=== PATIENT | male | born 1970 | race Two or more races ===

== ENCOUNTER 2022-12-03 11:29 | Emergency (ER) | payer OTHER ==
[~2022-12-03] VITALS: Ht 165.1 cm; Wt 70.3 kg
--- NOTE | 2022-12-03 11:40 | NUR ---
ON AND OFF CHEST PAIN RADIATING TO LEFT SHOULDER STARTING X6DAYS AGO. ASSISTED TO ER BED 10, EKG PERFORMED BY EMT. NOTIFIED. CARE CONTINUES
--- NOTE | 2022-12-03 11:55 | NUR ---
ESTABLISHED IV LINE 20 G RIGHT FOREARM
--- NOTE | 2022-12-03 11:55 | NUR ---
BLOOD SAMPLE OBTAIANED SENT TO LAB
[2022-12-03 12:32] LABS: BASOPHILS % (AUTO) 0.4 % (0.0-2.0); EOSINOPHILS % (AUTO) 1.7 % (0.0-6.0); HEMATOCRIT 50 % (39-51); HEMOGLOBIN 16.5 g/dL (13.5-17.5); LYMPHOCYTES # (AUTO) 3.4 K/uL (0.8-4.8); LYMPHOCYTES % (AUTO) 50.3 % (20.0-44.0); MEAN CORPUSCULAR HGB CONC 33 g/dl (31.0-36.0); MEAN CORPUSCULAR VOLUME 92 fL (80-96); MONOCYTES # (AUTO) 0.5 K/uL (0.1-1.30); MONOCYTES % (AUTO) 7.7 % (2.0-12.0); NEUTROPHILS # (AUTO) 2.7 K/uL (1.8-8.9); NEUTROPHILS % (AUTO) 39.9 % (43.0-81.0); PLATELET COUNT (AUTO) 266 K/uL (150-450); WHITE BLOOD COUNT (AUTO) 6.7 K/uL (4.3-11.0)
[2022-12-03 12:40] LABS: CALCIUM, SERUM 9.1 mg/dL (8.5-10.1); CARBON DIOXIDE 26 mmol/L (21-32); CHLORIDE 106 mmol/L (98-107); CREATININE 0.9 mg/dL (0.6-1.3); GLUCOSE 92 mg/dL (74-106); POTASSIUM 3.8 mmol/L (3.5-5.1); SODIUM SERUM 141 mmol/L (136-145); UREA NITROGEN, BLOOD 13 mg/dL (7-18)
[2022-12-03] MEDS ORDERED: IBUP-1953 PO (13:24)
[2022-12-03 13:46] VITALS: BP 117/89
== END 2022-12-03 13:47 | disposition home or self-care (01) ==
LOC: ER 11:35
DX: R07.89 Other chest pain (principal)
CPT/HCPCS: 36415; 71045-TC; 80048-TC; 84484-TC; 85025-TC

== ENCOUNTER 2023-04-18 09:41 | Emergency (ER) | payer OTHER ==
[~2023-04-18] VITALS: Ht 165.1 cm; Wt 70.8 kg
[~2023-04-18 09:41] MED LIST: IBUP-1953 PO
[2023-04-18] MEDS ORDERED: FLUORESCEIN SODIUM OPHTH 1 EA STRIP ONE (11:52)
[2023-04-18] MEDS ORDERED: TETRACAINE HCL 0.5% OPHTALMIC 15 ML BOTTLE OP ONE (12:00)
[2023-04-18] MEDS ORDERED: FLUORESCEIN SODIUM OPHTH 1 EA STRIP OP ONE (12:00)
[2023-04-18] MEDS ORDERED: CIPR2.5D14 LEFTEYE (12:41)
[2023-04-18 13:31] VITALS: BP 120/85; TEMP 98.7; O2SAT 100
== END 2023-04-18 13:31 | disposition home or self-care (01) ==
LOC: ER 09:50
DX: H10.9 Unspecified conjunctivitis (principal); Z60.2 Problems related to living alone

== ENCOUNTER 2023-09-14 15:32 | Emergency (ER) | payer OTHER ==
[~2023-09-14] VITALS: Ht 165.1 cm; Wt 72.6 kg
[~2023-09-14 15:32] MED LIST changes: +CIPR2.5D14 LEFTEYE
[2023-09-14 17:29] VITALS: BP 118/77; TEMP 98; O2SAT 97
== END 2023-09-14 17:31 | disposition home or self-care (01) ==
LOC: ER 15:32
DX: R09.A2 Foreign body sensation, throat (principal); Z60.2 Problems related to living alone
CPT/HCPCS: 71250-TC